=== PATIENT | female | born 1965 | race Caucasian/White ===

== ENCOUNTER 2018-02-25 16:11 | Emergency (ER) | payer OTHER ==
[~2018-02-25] VITALS: Ht 162.6 cm; Wt 79.4 kg
[2018-02-25] MEDS ORDERED: NORVASC5 MG PO (16:26)
[2018-02-25] MEDS ORDERED: LISINOPRIL-HCT1 EAC1 PO (16:26)
[2018-02-25] MEDS ORDERED: NORTRIPTYLINE H25 MG PO (16:27)
== END 2018-02-26 00:20 | disposition home or self-care (01) ==
LOC: ER 16:11
DX: R10.31 Right lower quadrant pain (principal)

== ENCOUNTER 2021-10-27 23:39 | Emergency (ER) | payer OTHER ==
[~2021-10-27] VITALS: Ht 152.4 cm; Wt 76.2 kg
[~2021-10-27 23:39] MED LIST: LISINOPRIL-HCT1 EAC1 PO; NORTRIPTYLINE H25 MG PO; NORVASC5 MG PO
[2021-10-27] MEDS ORDERED: CHLORTHALIDONE50 MG PO (23:49)
[2021-10-27] MEDS ORDERED: CARVEDILOL ER40 MG PO (23:49)
[2021-10-27] MEDS ORDERED: ZETIA10 MG PO (23:49)
[2021-10-27] MEDS ORDERED: METFORMIN HCL500 M3 PO (23:49)
[2021-10-27] MEDS ORDERED: PEPCID AC20 MG PO (23:50)
[2021-10-27] MEDS ORDERED: DAFLONEX-XL 11300 MG PO (23:50)
[2021-10-27] MEDS ORDERED: GABAPENTIN300 MG (23:50)
[2021-10-27] MEDS ORDERED: CHILDREN'S ASPI81 MG PO (23:50)
[2021-10-28] MEDS ORDERED: NAPROXEN375 MG PO (03:16)
[2021-10-28] MEDS ORDERED: PEPCID AC20 MG PO (03:16)
== END 2021-10-28 03:27 | disposition home or self-care (01) ==
LOC: ER 23:39
DX: K76.0 Fatty (change of) liver, not elsewhere classified (principal); R10.9 Unspecified abdominal pain

== ENCOUNTER 2022-06-20 10:44 | Outpatient (CLI) | payer OTHER ==
[~2022-06-20 10:44] MED LIST changes: +CARVEDILOL ER40 MG PO; +CHILDREN'S ASPI81 MG PO; +CHLORTHALIDONE50 MG PO; +DAFLONEX-XL 11300 MG PO; +GABAPENTIN300 MG; +METFORMIN HCL500 M3 PO; +NAPROXEN375 MG PO; +PEPCID AC20 MG PO; +ZETIA10 MG PO
== END 2022-06-20 10:46 | disposition home or self-care (01) ==
LOC: SONOGRAMA 10:44
PROVIDERS: ATTEND Pathology Anatomic Pathology & Clinical Pathology
DX: R73.03 Prediabetes (principal); E04.2 Nontoxic multinodular goiter

== ENCOUNTER 2025-01-17 10:15 | Outpatient (CLI) | payer OTHER | END 2025-01-17 10:17 | disposition home or self-care (01) | LOC: SONOGRAMA 10:15 | PROVIDERS: ATTEND Pathology Anatomic Pathology & Clinical Pathology | DX: D34 Benign neoplasm of thyroid gland (principal); E04.1 Nontoxic single thyroid nodule ==